=== PATIENT | female | born 1985 | race Caucasian/White ===

== ENCOUNTER → 2019-03-01 09:03 | Outpatient (BNVA) | payer OTHER, SELFPAY | PROVIDERS: Family Provider Nurse Practitioner Family; PCP Nurse Practitioner Family; Visit Provider Podiatrist Foot & Ankle Surgery | DX: M79.672 Pain in left foot (principal); M79.671 Pain in right foot | CPT/HCPCS: 73620; 73630 ==

== ENCOUNTER 2019-03-01 10:08 | Outpatient (CLI) | payer OTHER, SELFPAY | END 2019-03-01 10:09 | disposition home or self-care (01) | LOC: SPT 10:09 | PROVIDERS: Family Provider Nurse Practitioner Family; PCP Nurse Practitioner Family; Visit Provider Podiatrist Foot & Ankle Surgery | DX: S92.355D Nondisplaced fracture of fifth metatarsal bone, left foot, subsequent encounter for fracture with routine healing (principal); X58.XXXD Exposure to other specified factors, subsequent encounter | CPT/HCPCS: L4361 ==

== ENCOUNTER → 2019-03-22 10:50 | Outpatient (BNVA) | payer OTHER, SELFPAY | PROVIDERS: Family Provider Nurse Practitioner Family; PCP Nurse Practitioner Family; Visit Provider Podiatrist Foot & Ankle Surgery | DX: M84.375D Stress fracture, left foot, subsequent encounter for fracture with routine healing (principal); M79.672 Pain in left foot | CPT/HCPCS: 73630 ==

== ENCOUNTER → 2019-04-12 13:45 | Outpatient (BNVA) | payer OTHER, SELFPAY | PROVIDERS: Family Provider Nurse Practitioner Family; PCP Nurse Practitioner Family; Visit Provider Podiatrist Foot & Ankle Surgery | DX: M84.375D Stress fracture, left foot, subsequent encounter for fracture with routine healing (principal); M79.672 Pain in left foot | CPT/HCPCS: 73630 ==

== ENCOUNTER 2019-09-06 08:07 | Outpatient (CLI) | payer OTHER, SELFPAY ==
--- NOTE | 2019-09-06 08:17 | XR_ITS ---
WS: [id number] Chest 2 views, 09/06/2019 Clinical Data: PERSISTENT COUGH Comparison: None. Findings: No nodules, masses or effusions are seen. The heart is normal. The pulmonary vascularity is not increased. No pneumonia or pneumothorax is seen. XR/XR chest 2V* 10011 Impression: Negative chest.
--- NOTE | 2019-09-06 14:29 | PFTS_ITS ---
Date of Study:09/06/19 Date of Dictation: MECHANICS: Forced vital capacity (FVC) is normal. Forced expiratory volume in one second (FEV1) is normal. FEV1/FVC is reduced. FLOW VOLUME LOOP: Normal. LUNG VOLUMES: Not measured DIFFUSING CAPACITY FOR CARBON MONOXIDE: High. INTERPRETATION: The prebronchodilator spirometry is consistent with moderate obstruction. There is significant postbronchodilator response. The postbronchodilator spirometry is consistent with mild obstruction. Lung volumes were not measured. Gas exchange (DLCO) is increased. The pulmonary function test is likely consistent with asthma. MTDD
== END 2019-09-06 08:08 | disposition home or self-care (01) ==
PROVIDERS: Visit Provider Nurse Practitioner Family
DX: R05 Cough (principal)
CPT/HCPCS: 71046; 94060; 94729; J7611

== ENCOUNTER → 2020-03-30 15:13 | Outpatient (BNVA) | payer OTHER, SELFPAY | PROVIDERS: PCP Nurse Practitioner Family; Visit Provider Obstetrics & Gynecology | DX: Z01.812 Encounter for preprocedural laboratory examination (principal); R87.613 High grade squamous intraepithelial lesion on cytologic smear of cervix (HGSIL) | CPT/HCPCS: 87635 ==

== ENCOUNTER 2020-04-05 05:44 | Day surgery (SDC) | payer OTHER, SELFPAY ==
[2020-04-04 16:10] VITALS: BMI 27.4
[2020-04-05 06:12] VITALS: BP 111/69; PULSE 65; RESP 18; TEMP 36.5; O2SAT 98
[2020-04-05 06:26] LABS: OR HCG Qualitative Urine Negative (Negative)
[2020-04-05 06:28] LABS: Add Urine Microscopic? YES; Bilirubin Urine Neg (Negative); Blood Urine 2+ (Negative); Glucose Urine UA Norm (Normal); Ketones Urine Negative (Negative); Leukocyte Esterase Urine Negative (Negative); Nitrate Urine Negative (Negative); Protein Urine Neg (Negative); Specific Gravity, Urine 1.025 (1.005-1.030); Urine Appearance Clear (CLEAR); Urine Color Yellow (Yellow); Urobilinogen Urine 1 mg/dL (Negative); pH Urine 5 (5-7)
[2020-04-05] MEDS: sodium chloride 0.9% 1,000 ML 30 ML IV (06:30)
[2020-04-05] MEDS: scopolamine 1.5 Patch 1 PATCH TRANSDERMA (06:34)
[2020-04-05 06:37] LABS: Add Urine Culture? No; Bacteria Urine 1+ /hpf; Mucus Urine 3+ /hpf; RBC Urine 0-4 /hpf (0-2)
[2020-04-05 06:56] LABS: Basophils # 0.1 10^3/uL (0.0-0.1); Basophils % 0.9 %; Eosinophils # 0.2 10^3/uL (0.0-0.8); Eosinophils % 2.7 %; Hematocrit 46.3 % (37.0-47.0); Hemoglobin 15.5 g/dL (11.5-15.3); Lymphocytes # 2.5 10^3/uL (0.8-4.8); Lymphocytes % 28.7 %; Mean Corpuscular HGB Conc 33.5 g/dL (30.0-36.0); Mean Corpuscular Hemoglobin 30.9 pg (28.0-34.0); Mean Corpuscular Volume 92.4 fL (81-99); Mean Platelet Volume 10.2 fL (7.4-10.4); Monocytes # 0.5 10^3/uL (0.2-0.9); Monocytes % 5.9 %; Neutrophils % 61.5 %; Nucleated Red Blood Cells % 0 %; Platelet Count 329 10^3/cmm (130-400); Red Blood Count 5.01 10^6/uL (4.1-5.3); Red Cell Distribution Width 11.8 % (12.1-15.1); White Blood Count 8.8 10^3/uL (4.0-10.0)
--- NOTE | 2020-04-05 07:04 | W.PM.OPSUD ---
Surgery/Procedure H&P Update DATE OF PROCEDURE: April 05, 2020 DATE H&P PERFORMED: 03/28/20 H&P UPDATE INFORMATION: I have reviewed H&P completed within last 30 days, I have examined patient prior to procedure and No changes to prior documentation PREOP DIAGNOSIS: Cervical high-grade squamous intraepithelial lesion PLANNED PROCEDURE: Operation Date: 04/05/20 07:00 Proposed Procedures p Cold Knife Cone Biopsy 35293 R87.613(Not Applicable) - Keegan Hernández MD
--- NOTE | 2020-04-05 07:16 | ANES.PREANE2 ---
Pre-Anesthetic Assessment Pre-Anesthetic Assessment: Height/Weight: Height 1.68 m Weight 77.111 kg Temp Pulse Resp BP Pulse Ox 97.7 F 65 18 111/69 98 04/05/20 06:12 04/05/20 06:12 04/05/20 06:12 04/05/20 06:12 04/05/20 06:12 Preop Diagnosis: Cervical high-grade squamous intraepithelial lesion Proposed Procedure: Operation Date: 04/05/20 07:00 Proposed Procedures p Cold Knife Cone Biopsy 13642 R87.613(Not Applicable) - Keegan Hernández MD Was Beta Zora taken within 24 hours: N/A Last intake: Intake Last Liquid Date 04/04/20 Last Liquid Time 20:00 Last Solid Date 04/04/20 Last Solid Time 20:00 Social: Social History: Tobacco and No alcohol Exam: Pre-Anes Outpt Exam: alert, oriented x 3 and regular rate & rhythm Airway: Submandibular: WNL Cervical ROM: WNL MP: 2 Dentition: Full Anesthetic Plan: ASA status: 2 Anesthesia: General Risk of > 500 ml blood loss (7ml/kg in children): No Meds/Allergies Current Medications: Current Medications Generic Name Dose Route Start Last Admin Trade Name Freq PRN Reason Stop Dose Admin Sodium Chloride 1,000 mls @ 30 ml s/hr 04/05/20 06:00 04/05/20 06:30 Sodium Chloride 0.9% IV 04/06/20 05:59 30 mls/hr .Q24H NATALIE Administration PFSH Anesthesia PFSH: Medical History (Updated 03/28/20 @ 09:46 by Keegan Hernández MD) Moderate dysplasia of cervix (HEATH II) Surgical History History of bilateral tubal ligation History of cholecystectomy Family History (Updated 03/28/20 @ 08:48 by Huong Back RN) Grandfather Cancer Heart disease paternal Grandmother Diabetes maternal Stroke paternal Heart disease paternal Mother Hypertension Denies family history of Colon cancer Ovarian cancer Clotting disorder Hyperlipidemia Breast cancer Anesthesia complication Bleeding disorder Uterine cancer Thyroid condition Social History (Updated 03/28/20 @ 08:50 by Huong Back RN) Smoking and tobacco status: current every day smoker cigarettes Packs smoked per day: 0.5 Years cigarettes smoked: 15 Alcohol intake: former Year of sobriety/quit date alcohol: 2017 Data Anesthesia CBC & Chem 7: 04/05/20 06:20 04/05/20 06:20 Other Labs: Laboratory Results - last 48 hr 04/05/20 04/05/20 04/05/20 05:53 06:07 06:20 WBC 8.8 RBC 5.01 Hgb 15.5 H Hct 46.3 MCV 92.4 MCH 30.9 MCHC 33.5 RDW 11.8 L Plt Count 329 MPV 10.2 Neut % (Auto) 61.5 Lymph % (Auto) 28.7 [place] % (Auto) 5.9 Eos % (Auto) 2.7 Baso % (Auto) 0.9 Neut # (Auto) 5.40 Lymph # (Auto) 2.5 [place] # (Auto) 0.5 Eos # (Auto) 0.2 Baso # (Auto) 0.1 Nucleated RBC % (auto) 0 Nucleated RBCs # 0.0 Urine Color Yellow Urine Appearance Clear Urine pH 5 Ur Specific [place] 1.025 Urine Protein Neg Urine Glucose (UA) Norm Urine Ketones Negative Urine Blood 2+ H Urine Nitrate Negative Urine Bilirubin Neg Urine Urobilinogen 1 H Ur Leukocyte Esterase Negative Urine RBC 0-4 H Urine WBC None Ur Squamous Epith Cells 5-10 H Amorphous Sediment Not Reportable Urine Bacteria 1+ H Urine Mucus 3+ Urine HCG, Qual Negative Cardiac Studies: No Data to Display
[2020-04-05 07:22] LABS: Anion Gap 12.2 (5-19); Blood Urea Nitrogen 12 mg/dL (6-20); Calcium 9.2 mg/dL (8.5-10.5); Carbon Dioxide 26 mmol/L (22-29); Chloride 102 mmol/L (98-107); Glomerular Filtration Rate 115.1 mL/min (90-130); Glucose 90 mg/dL (65-115); Osmolality Calculated 281 mOsm/kg (285-295); Potassium 4.2 mmol/L (3.5-5.1); Sodium 136 mmol/L (136-145)
--- NOTE | 2020-04-05 07:52 | PM.OP ---
Operative Report Date of procedure: April 05, 2020 Pre-op Diagnosis: Cervical high-grade squamous intraepithelial lesion Post-op diagnosis: same Post-op Findings: cervical ectropion Procedure Done: Colon biopsy via Warren Cone Biopsy Excisor Specimens removed/disposition: Cervical biopsy Surgeon: Keegan Hernández MD Anesthesia: MAC Estimated blood loss (mL): 5 IV fluids (mL): 400 Complications: none Findings: cervical ectropion. Condition: stable Disposition: PACU Brief History: 34-year-old female with a history of abnormal Pap smear with high-grade squamous intraepithelial lesion. Procedure: After informed consent, the patient was taken to the operating room where general anesthesia was administered without difficulty. After administration of general anesthesia, the patient was placed in the dorsal lithotomy position, and prepped and draped in the usual sterile fashion. A time-out procedure was performed. The patient was examined under anesthesia and found to have a normal uterus with normal adnexa. An open side speculum was then placed in the patient's vagina and the anterior lip of the cervix grasped with the singed toothed tenaculum A uterine sound was then advanced into the cervix to determine its direction and length. The decending cervical branchs of the uterine arteries were ligated with 2-0 Vicryl bilaterally at the level of the internal os. Attention was then turned to the cervix where it was stain with Lugol?s solution to hightlight the lesion. The paracervical area was then circumferentially infiltrated using Lidocaine2% with epinephrine. A Warren Cone Biopsy Excisor was used to cut the cone biopsy in circular fashion and following removal of the specimen a suture was placed at the 12 o?clock location and fixed in formalin. The cone biopsy site was sutured using a running lock stitch of 2-O Vicryl suture. Upon completion of the suture placement, the endocervical canal was sounded to assure patency. A prophylactic application of Monsel's solution completed the procedure. Bleeding was minimal. The patient tolerated the procedure well, sponge, lap and needle counts were correct times two She was taken to the recovery room in good condition.
[2020-04-05 07:56] VITALS: BP 93/44; PULSE 90; RESP 18; TEMP 36.2; O2SAT 96
[2020-04-05 08:25] VITALS: BP 126/74; PULSE 70; RESP 18; O2SAT 99
--- NOTE | 2020-04-05 08:42 | ANE.PACU2 ---
Inpatient post-anesthesia follow up: Airway intact: Yes Vital signs: Temperature 97.1 F Pulse Rate 70 Respiratory Rate 18 Blood Pressure 126/74 Pulse Oximetry 99 Oxygen Delivery Me thod Room Air Oxygen Flow Rate Fraction of Inspir ed Oxygen Hydration adequate: Yes Nausea and vomiting: No Pain level: 1 Mental status: Baseline
== END 2020-04-05 08:33 | disposition home or self-care (01) ==
PROVIDERS: PCP Nurse Practitioner Family; Visit Provider Obstetrics & Gynecology
PROC: 0UB97ZZ Excision of Uterus, Via Natural or Artificial Opening (ICD-10-PCS; CPT 57520; principal; 2020-04-05 07:00)
DX: R87.613 High grade squamous intraepithelial lesion on cytologic smear of cervix (HGSIL) (principal); F17.210 Nicotine dependence, cigarettes, uncomplicated
CPT/HCPCS: 57522; 12345; 36415; 80048; 81001; 81025; 84703; 85025; 86850; 86900; 88307; 96365; J0690; J2704; J3010; J7030

== ENCOUNTER 2023-08-19 13:41 | Outpatient (CLI) | payer OTHER, SELFPAY ==
--- NOTE | 2023-08-19 13:54 | US_ITS ---
WS: [id number] Exam: US breast LT limited* [id number] Date/Time of Exam: 08/19/2023 2:56 PM Reason For Exam: BILATERAL BREAST LUMP The upper outer quadrant of the LEFT breast is targeted for ultrasound evaluation. There are several fatty replaced benign lymph nodes in the LEFT axilla. These correspond to to the pa tient's palpable abnormality. There were no suspicious solid masses identified. No cysts were noted. US/US breast LT limited* [id number] IMPRESSION: 1. No suspicious mass identified in the upper outer quadrant of the LEFT breast or the LEFT axilla. 2. Benign-appearing fatty replaced lymph nodes were seen in the LEFT axilla.
--- NOTE | 2023-08-19 13:54 | MM_ITS ---
WS: [id number] VIEWS: MLO, CC, and ML views both breasts. 3D digital tomosynthesis is also included in this exam. S pot compression images with tomography also were obtained of the LEFT breast in the MLO projection. No prior exams Findings: There was no sign of mass, architectural distortion or suspicious calcification in either breast. Sev eral benign-appearing lymph nodes seen in the RIGHT axillary region. There are scattered areas of fib roglandular density. Regional ultrasound of the LEFT axillary region would be recommended for further work-up. MM/[place] [id number] Impression: BI-RADS: 0-Incomplete: Need additional imaging evaluation FOLLOW-UP: See Report This mammogram was also analyzed by the Computer Aided Detection System R2 Imag e Pyrometer Temperature Regulator.
== END 2023-08-19 13:42 | disposition home or self-care (01) ==
LOC: RAD 13:42
PROVIDERS: PCP Nurse Practitioner Family; Visit Provider Nurse Practitioner Family
DX: N63.10 Unspecified lump in the right breast, unspecified quadrant (principal); R92.323 Mammographic fibroglandular density, bilateral breasts
CPT/HCPCS: 76642; 77062; G0279